=== PATIENT | male | born 1935 | race Caucasian/White ===

== ENCOUNTER 2020-10-16 11:17 | Outpatient (CLI) | payer MEDICARE, OTHER ==
[2020-10-16 12:48] LABS: Hemoglobin 13.5 g/dL (13.5-17.5); Mean Corpuscular HGB CONC 33.2 g/dL (32.0-36.0); Mean Corpuscular Hemoglobin 32.8 pg (27.0-33.0); Platelet Count 214 10x3/uL (150-450); RBC Distribution Width 12.6 % (11.5-14.5); Red Blood Cell (RBC) Count 4.11 10x6/uL (4.32-5.72)
[2020-10-16 13:06] LABS: Anion Gap 11 mmol/L (10-20); BUN (Urea Nitrogen) 27 mg/dL (8.4-25.7); Calc. Creatinine Clearance 0 mL/min (70-130); Calcium 9.1 mg/dL (7.8-10.44); Carbon Dioxide 31 mmol/L (23-31); Chloride 102 mmol/L (98-107); Glucose 127 mg/dL (83-110); PTT 26.5 sec (22.0-33.0); Potassium 4.4 mmol/L (3.5-5.1); Sodium 140 mmol/L (136-145)
[2020-10-17 02:35] LABS: SARS-CoV-2 PCR by NAA Not Detected (NotDetected)
== END 2020-10-16 11:18 | disposition home or self-care (01) ==
LOC: CSHLAB 11:17
PROVIDERS: ATTEND Internal Medicine Cardiovascular Disease
DX: Z01.812 Encounter for preprocedural laboratory examination (principal); Z20.822 Contact with and (suspected) exposure to COVID-19; I49.5 Sick sinus syndrome
CPT/HCPCS: 80048; 85027; 85610; 85730; 87635; U0003; U0005

== ENCOUNTER 2020-11-13 09:09 | Observation (INO) | payer MEDICARE, OTHER ==
[2020-11-13 10:03] LABS: ALT (SGPT) 14 U/L (8-55); AST (SGOT) 18 U/L (5-34); Albumin 3.8 g/dL (3.4-4.8); Alkaline Phosphatase 94 U/L (40-110); Anion Gap 13 mmol/L (10-20); BUN (Urea Nitrogen) 22 mg/dL (8.4-25.7); Bilirubin, Total 0.8 mg/dL (0.2-1.2); Calc. Creatinine Clearance 0 mL/min (70-130); Carbon Dioxide 28 mmol/L (23-31); Chloride 101 mmol/L (98-107); Globulin 2.6 g/dL (2.4-3.5); Glucose 144 mg/dL (83-110); Potassium 4.2 mmol/L (3.5-5.1); Protein, Total 6.4 g/dL (5.8-8.1); Sodium 138 mmol/L (136-145)
[2020-11-13 10:48] LABS: #Basophils 0.1 10x3/uL (0.0-0.2); #Eosinphils 0.4 10x3/uL (0.0-0.5); #Monocytes 0.6 10x3/uL (0.0-1.1); #Neutrophils 6.2 10x3/uL (1.5-8.4); %Basophils 0.9 % (0.0-2.0); %Eosinophils 4.5 % (0.0-6.0); %Lymphocytes 10.4 % (18.0-47.0); %Monocytes 7.2 % (0.0-10.0); %Neutrophils 76.3 % (40.0-75.0); Hemoglobin 13.9 g/dL (13.5-17.5); Mean Corpuscular HGB CONC 34.1 g/dL (32.0-36.0); Mean Corpuscular Hemoglobin 32.8 pg (27.0-33.0); Mean Corpuscular Volume 96.2 fl (81.2-95.1); Mean Platelet Volume 10.4 fl (7.4-10.4); Platelet Count 196 10x3/uL (150-450); RBC Distribution Width 12.6 % (11.5-14.5); Red Blood Cell (RBC) Count 4.24 10x6/uL (4.32-5.72); White Blood Cell (WBC) Count 8.1 10x3/uL (3.5-10.5)
[2020-11-13] MEDS ORDERED: hydrALAZINE 20 MG/ML VIAL SLOW IVP PRN ×2 (11:38→15:02)
[2020-11-13] MEDS ORDERED: Aspirin 81 mg Enteric Coated Tablet PO SCH (12:15)
[2020-11-13 13:05] VITALS: BMI 25.2
[2020-11-13] MEDS ORDERED: Lisinopril 20 MG TAB PO SCH (14:45)
[2020-11-13] MEDS ORDERED: Acetaminophen 325 MG TAB PO PRN (15:41)
[2020-11-13] MEDS: Carvedilol 25 MG TAB PO SCH (16:08)
[2020-11-13] MEDS: Apixaban 5 MG TAB PO SCH (19:53)
[2020-11-13] MEDS: Flecainide 50 MG TAB PO SCH (19:53)
[2020-11-13] MEDS ORDERED: Atorvastatin Calcium 40 MG TAB PO SCH (21:00)
[2020-11-13] MEDS ORDERED: Apixaban 5 MG TAB PO SCH (21:00)
[2020-11-14 05:26] LABS: Cardiac Risk 2.5 (Less than 4.5)
[2020-11-14] MEDS: Flecainide 50 MG TAB PO SCH (08:54)
[2020-11-14 08:55] VITALS: BP 144/88
[2020-11-14] MEDS: Carvedilol 25 MG TAB PO SCH (08:55)
[2020-11-14] MEDS: Apixaban 5 MG TAB PO SCH (08:55)
[2020-11-14] MEDS ORDERED: Aspirin 81 mg Enteric Coated Tablet PO SCH ×2 (09:00)
[2020-11-14] MEDS ORDERED: Enoxaparin Sodium 30 MG/0.3 ML SYRINGE SC SCH (09:00)
[2020-11-14] MEDS ORDERED: Lisinopril 20 MG TAB PO SCH (09:00)
[2020-11-14 09:31] VITALS: TEMP 98.6
== END 2020-11-14 13:19 | disposition home or self-care (01) ==
LOC: CSHERS 09:09 → INTOOBSV 11:56 → CSHTELE 11:56
PROVIDERS: ADMIT Family Medicine; ATTEND Family Medicine
DX: G45.9 Transient cerebral ischemic attack, unspecified (principal); I10 Essential (primary) hypertension; H40.9 Unspecified glaucoma; Z85.46 Personal history of malignant neoplasm of prostate; E78.5 Hyperlipidemia, unspecified; I48.0 Paroxysmal atrial fibrillation; Z95.0 Presence of cardiac pacemaker; Z79.899 Other long term (current) drug therapy; Z79.82 Long term (current) use of aspirin; Z88.2 Allergy status to sulfonamides; Z88.8 Allergy status to other drugs, medicaments and biological substances; Z91.048 Other nonmedicinal substance allergy status
CPT/HCPCS: 36415; 36416; 70450; 70551; 71045; 80053; 80061; 83880; 84484; 85025; 93005; 93306; G0378

== ENCOUNTER 2021-05-25 16:18 | Inpatient (IN) | payer MEDICARE, OTHER ==
[2021-05-25] MEDS ORDERED: HYDROcodone/Acetaminophen 5/325 mg Tablet PO PRN (16:21)
[2021-05-25] MEDS ORDERED: Ondansetron ODT 4 MG TAB PO PRN (16:21)
[2021-05-25] MEDS ORDERED: HYDROcodone/Acetaminophen 7.5/325 mg Tablet PO PRN (16:21)
[2021-05-25] MEDS ORDERED: Acetaminophen 325 MG TAB PO PRN (16:21)
[2021-05-25] MEDS ORDERED: Zolpidem Tartrate 5 MG TAB PO PRN (16:21)
[2021-05-25] MEDS ORDERED: Calcium Carbonate 500 MG ChewTAB PO PRN (16:21)
[2021-05-25] MEDS ORDERED: Senokot S 8.6-50 MG TAB PO PRN (16:21)
[2021-05-25] MEDS ORDERED: Loperamide HCl 2 MG CAP PO PRN (16:21)
[2021-05-25 16:57] LABS: #Basophils 0.1 10x3/uL (0.0-0.2); #Eosinphils 0.2 10x3/uL (0.0-0.5); #Monocytes 0.7 10x3/uL (0.0-1.1); #Neutrophils 5.5 10x3/uL (1.5-8.4); %Basophils 0.8 % (0.0-2.0); %Eosinophils 2.7 % (0.0-6.0); %Lymphocytes 16.5 % (18.0-47.0); %Monocytes 8.9 % (0.0-10.0); %Neutrophils 70.2 % (40.0-75.0); Hemoglobin 12.6 g/dL (13.5-17.5); Mean Corpuscular HGB CONC 34.5 g/dL (32.0-36.0); Mean Corpuscular Hemoglobin 33.8 pg (27.0-33.0); Mean Corpuscular Volume 97.9 fl (81.2-95.1); Platelet Count 214 10x3/uL (150-450); Red Blood Cell (RBC) Count 3.73 10x6/uL (4.32-5.72); White Blood Cell (WBC) Count 7.8 10x3/uL (3.5-10.5)
[2021-05-25 17:03] LABS: ALT (SGPT) 18 U/L (8-55); AST (SGOT) 19 U/L (5-34); Albumin 3.8 g/dL (3.4-4.8); Alkaline Phosphatase 101 U/L (40-110); Anion Gap 12 mmol/L (10-20); BUN (Urea Nitrogen) 19 mg/dL (8.4-25.7); Bilirubin, Total 0.6 mg/dL (0.2-1.2); Calc. Creatinine Clearance 0 mL/min (70-130); Calcium 9.4 mg/dL (7.8-10.44); Carbon Dioxide 28 mmol/L (23-31); Chloride 101 mmol/L (98-107); Globulin 3.1 g/dL (2.4-3.5); Glucose 149 mg/dL (83-110); Protein, Total 6.9 g/dL (5.8-8.1); Sodium 137 mmol/L (136-145)
[2021-05-25] MEDS ORDERED: FLU VACC QS2021-22(65YR UP)/PF 240 MCG/0.7 ML SYRINGE IM ONE (17:45)
[2021-05-25] MEDS ORDERED: Carvedilol 25 MG TAB PO SCH (19:00)
[2021-05-25 19:55] VITALS: BMI 24.7
[2021-05-25] MEDS: Gabapentin 300 MG CAP PO SCH ×2 (20:30→21:12)
[2021-05-25] MEDS: Flecainide 50 MG TAB PO SCH (20:30)
[2021-05-25] MEDS ORDERED: FLUOROMETHOLONE R EYE SCH (21:00)
[2021-05-25] MEDS: Brimonidine Tartrate 0.2% Ophth Soln 5 ml Bottle EA EYE SCH ×2 (21:12→21:15)
[2021-05-25] MEDS: Latanoprost 0.005% Ophth Soln 2.5 ml Bottle L EYE SCH ×2 (21:13→21:15)
[2021-05-25] MEDS: Timolol 0.5% Ophth Soln 5 ml Bottle EA EYE SCH ×2 (21:14→21:15)
[2021-05-25] MEDS: CEFAZOLIN 0.5 GM in Sodium Chloride 0.9% 100 ML IVPB SCH (21:27)
[2021-05-26] MEDS: CEFAZOLIN 0.5 GM in Sodium Chloride 0.9% 100 ML IVPB SCH ×3 (05:29→21:46)
[2021-05-26 05:58] LABS: #Basophils 0.1 10x3/uL (0.0-0.2); #Eosinphils 0.2 10x3/uL (0.0-0.5); #Monocytes 0.5 10x3/uL (0.0-1.1); %Basophils 0.7 % (0.0-2.0); %Eosinophils 2.9 % (0.0-6.0); %Lymphocytes 15.8 % (18.0-47.0); %Monocytes 7.3 % (0.0-10.0); %Neutrophils 72.7 % (40.0-75.0); Hemoglobin 11.3 g/dL (13.5-17.5); Mean Corpuscular HGB CONC 34.5 g/dL (32.0-36.0); Mean Corpuscular Hemoglobin 33.3 pg (27.0-33.0); Mean Corpuscular Volume 96.8 fl (81.2-95.1); Mean Platelet Volume 10.6 fl (7.4-10.4); Platelet Count 204 10x3/uL (150-450); RBC Distribution Width 13.1 % (11.5-14.5); Red Blood Cell (RBC) Count 3.39 10x6/uL (4.32-5.72); White Blood Cell (WBC) Count 6.9 10x3/uL (3.5-10.5)
[2021-05-26 06:11] LABS: Anion Gap 15 mmol/L (10-20); BUN (Urea Nitrogen) 16 mg/dL (8.4-25.7); Calc. Creatinine Clearance 52 mL/min (70-130); Calcium 8.9 mg/dL (7.8-10.44); Carbon Dioxide 21 mmol/L (23-31); Chloride 105 mmol/L (98-107); Glucose 131 mg/dL (83-110); Potassium 4.2 mmol/L (3.5-5.1); Sodium 137 mmol/L (136-145)
[2021-05-26 07:28] LABS: SARS-CoV-2 NAA Rapid Test Not Detected (NotDetected)
[2021-05-26] MEDS ORDERED: Carvedilol 25 MG TAB PO SCH ×2 (08:00→14:00)
[2021-05-26] MEDS ORDERED: CEFAZOLIN 1 GM VIAL ONE ×2 (08:04→08:05)
[2021-05-26] MEDS ORDERED: Gentamicin 80 MG/2 ML VIAL ONE (08:05)
[2021-05-26] MEDS ORDERED: Sodium Chloride 0.9% 1,000 ML ONE (08:06)
[2021-05-26] MEDS ORDERED: Lidocaine 1% PF 5 ML VIAL ONE (08:12)
[2021-05-26] MEDS ORDERED: Midazolam HCl 2 mg/2 ml Vial ONE (08:12)
[2021-05-26] MEDS ORDERED: Fentanyl 100 MCG/2 ML VIAL ONE (08:12)
[2021-05-26] MEDS ORDERED: Lisinopril 20 MG TAB PO SCH (09:00)
[2021-05-26] MEDS ORDERED: HYDROcodone/Acetaminophen 10/325 mg Tablet PO PRN (10:14)
[2021-05-26] MEDS ORDERED: HYDROcodone/Acetaminophen 5/325 mg Tablet PO PRN (10:15)
[2021-05-26] MEDS ORDERED: HYDROcodone/Acetaminophen 7.5/325 mg Tablet PO PRN (10:15)
[2021-05-26] MEDS: Furosemide 20 MG TAB PO SCH (11:02)
[2021-05-26] MEDS: Potassium Chloride 20 MEQ TAB PO SCH (11:02)
[2021-05-26] MEDS: Flecainide 50 MG TAB PO SCH ×2 (11:03→20:30)
[2021-05-26] MEDS: Atorvastatin Calcium 20 MG TAB PO SCH (11:03)
[2021-05-26] MEDS: Brimonidine Tartrate 0.2% Ophth Soln 5 ml Bottle EA EYE SCH ×2 (11:05→20:32)
[2021-05-26] MEDS: Timolol 0.5% Ophth Soln 5 ml Bottle EA EYE SCH ×2 (11:10→20:30)
[2021-05-26] MEDS ORDERED: Sodium Chloride 0.9% 500 ML IV SCH (13:45)
[2021-05-26] MEDS ORDERED: Sodium Chloride 0.9% 250 ML IV SCH (13:50)
[2021-05-26] MEDS: Carvedilol 6.25 MG TAB PO SCH (18:45)
[2021-05-26] MEDS: Latanoprost 0.005% Ophth Soln 2.5 ml Bottle L EYE SCH (20:30)
[2021-05-26] MEDS: Gabapentin 300 MG CAP PO SCH (20:38)
[2021-05-27] MEDS: CEFAZOLIN 0.5 GM in Sodium Chloride 0.9% 100 ML IVPB SCH ×3 (06:12→22:20)
[2021-05-27] MEDS: Brimonidine Tartrate 0.2% Ophth Soln 5 ml Bottle EA EYE SCH ×2 (08:13→22:20)
[2021-05-27] MEDS: Carvedilol 6.25 MG TAB PO SCH ×2 (08:16→18:06)
[2021-05-27] MEDS: Furosemide 20 MG TAB PO SCH (08:16)
[2021-05-27] MEDS: Flecainide 50 MG TAB PO SCH ×2 (08:17→22:10)
[2021-05-27] MEDS: Potassium Chloride 20 MEQ TAB PO SCH (08:17)
[2021-05-27] MEDS: Lisinopril 20 MG TAB PO SCH (08:17)
[2021-05-27] MEDS: Atorvastatin Calcium 20 MG TAB PO SCH (08:17)
[2021-05-27] MEDS: Timolol 0.5% Ophth Soln 5 ml Bottle EA EYE SCH ×2 (08:18→22:17)
[2021-05-27 09:45] LABS: #Basophils 0.1 10x3/uL (0.0-0.2); #Eosinphils 0.1 10x3/uL (0.0-0.5); #Monocytes 0.5 10x3/uL (0.0-1.1); #Neutrophils 4.7 10x3/uL (1.5-8.4); %Eosinophils 2.1 % (0.0-6.0); %Lymphocytes 13.3 % (18.0-47.0); %Monocytes 7.9 % (0.0-10.0); %Neutrophils 75.1 % (40.0-75.0); Hemoglobin 12.5 g/dL (13.5-17.5); Mean Corpuscular HGB CONC 34.2 g/dL (32.0-36.0); Mean Corpuscular Hemoglobin 32.9 pg (27.0-33.0); Mean Corpuscular Volume 96.3 fl (81.2-95.1); Mean Platelet Volume 9.7 fl (7.4-10.4); Platelet Count 204 10x3/uL (150-450); RBC Distribution Width 13.1 % (11.5-14.5); White Blood Cell (WBC) Count 6.3 10x3/uL (3.5-10.5)
[2021-05-27] MEDS: Gabapentin 300 MG CAP PO SCH (22:11)
[2021-05-27] MEDS: Latanoprost 0.005% Ophth Soln 2.5 ml Bottle L EYE SCH (22:18)
[2021-05-28 05:00] LABS: #Basophils 0.1 10x3/uL (0.0-0.2); #Eosinphils 0.2 10x3/uL (0.0-0.5); #Monocytes 0.4 10x3/uL (0.0-1.1); #Neutrophils 3.9 10x3/uL (1.5-8.4); %Eosinophils 3.4 % (0.0-6.0); %Lymphocytes 20.6 % (18.0-47.0); %Monocytes 7.4 % (0.0-10.0); %Neutrophils 66.4 % (40.0-75.0); Hemoglobin 11.6 g/dL (13.5-17.5); Mean Corpuscular HGB CONC 34.1 g/dL (32.0-36.0); Mean Corpuscular Hemoglobin 32.8 pg (27.0-33.0); Mean Platelet Volume 9.9 fl (7.4-10.4); Platelet Count 190 10x3/uL (150-450); RBC Distribution Width 12.7 % (11.5-14.5); Red Blood Cell (RBC) Count 3.54 10x6/uL (4.32-5.72); White Blood Cell (WBC) Count 5.9 10x3/uL (3.5-10.5)
[2021-05-28] MEDS: CEFAZOLIN 0.5 GM in Sodium Chloride 0.9% 100 ML IVPB SCH ×3 (05:42→22:54)
[2021-05-28] MEDS: Brimonidine Tartrate 0.2% Ophth Soln 5 ml Bottle EA EYE SCH ×2 (09:08→21:25)
[2021-05-28] MEDS: Atorvastatin Calcium 20 MG TAB PO SCH (09:11)
[2021-05-28] MEDS: Furosemide 20 MG TAB PO SCH (09:11)
[2021-05-28] MEDS: Flecainide 50 MG TAB PO SCH ×2 (09:12→20:43)
[2021-05-28] MEDS: Carvedilol 6.25 MG TAB PO SCH ×2 (09:12→18:32)
[2021-05-28] MEDS: Potassium Chloride 20 MEQ TAB PO SCH (09:12)
[2021-05-28] MEDS: Timolol 0.5% Ophth Soln 5 ml Bottle EA EYE SCH ×2 (09:13→21:24)
[2021-05-28] MEDS: Lisinopril 20 MG TAB PO SCH (09:13)
[2021-05-28] MEDS: Gabapentin 300 MG CAP PO SCH (20:44)
[2021-05-28] MEDS: Latanoprost 0.005% Ophth Soln 2.5 ml Bottle L EYE SCH (21:25)
[2021-05-29] MEDS: CEFAZOLIN 0.5 GM in Sodium Chloride 0.9% 100 ML IVPB SCH ×3 (05:19→22:35)
[2021-05-29] MEDS: Potassium Chloride 20 MEQ TAB PO SCH (08:09)
[2021-05-29] MEDS: Atorvastatin Calcium 20 MG TAB PO SCH (08:09)
[2021-05-29] MEDS: Furosemide 20 MG TAB PO SCH (08:09)
[2021-05-29] MEDS: Lisinopril 20 MG TAB PO SCH (08:09)
[2021-05-29] MEDS: Carvedilol 6.25 MG TAB PO SCH ×2 (08:10→17:18)
[2021-05-29] MEDS: Flecainide 50 MG TAB PO SCH ×2 (08:10→22:31)
[2021-05-29] MEDS: Timolol 0.5% Ophth Soln 5 ml Bottle EA EYE SCH ×2 (11:41→22:38)
[2021-05-29] MEDS: Brimonidine Tartrate 0.2% Ophth Soln 5 ml Bottle EA EYE SCH ×2 (11:41→22:37)
[2021-05-29] MEDS: Gabapentin 300 MG CAP PO SCH (22:32)
[2021-05-29] MEDS: Latanoprost 0.005% Ophth Soln 2.5 ml Bottle L EYE SCH (22:38)
[2021-05-30] MEDS ORDERED: CEFAZOLIN 0.5 GM, Admixture Fee 1 EACH in Sodium Chloride 0.9% 100 ML IVPB SCH (06:00)
[2021-05-30] MEDS: CEFAZOLIN 0.5 GM in Sodium Chloride 0.9% 100 ML IVPB SCH (06:00)
[2021-05-30 08:12] VITALS: BP 140/71; TEMP 98.6
[2021-05-30] MEDS ORDERED: Apixaban 5 MG TAB PO SCH (09:00)
[2021-05-30] MEDS: Lisinopril 20 MG TAB PO SCH (09:01)
[2021-05-30] MEDS: Furosemide 20 MG TAB PO SCH (09:01)
[2021-05-30] MEDS: Potassium Chloride 20 MEQ TAB PO SCH (09:01)
[2021-05-30] MEDS: Flecainide 50 MG TAB PO SCH (09:01)
[2021-05-30] MEDS: Atorvastatin Calcium 20 MG TAB PO SCH (09:01)
[2021-05-30] MEDS: Timolol 0.5% Ophth Soln 5 ml Bottle EA EYE SCH (09:02)
[2021-05-30] MEDS: Brimonidine Tartrate 0.2% Ophth Soln 5 ml Bottle EA EYE SCH (09:02)
[2021-05-30] MEDS: Carvedilol 6.25 MG TAB PO SCH (09:03)
[2021-05-30] MEDS ORDERED: Amoxicillin/Potassium Clav 875 MG TAB PO SCH (21:00)
== END 2021-05-30 14:10 | disposition home or self-care (01) | DRG 315 ==
LOC: CSHTELE 16:18
PROVIDERS: ADMIT Specialist; ATTEND Specialist
PROC: 0W980ZZ Drainage of Chest Wall, Open Approach (ICD-10-PCS; principal; 2021-05-26)
PROC: 0JPT02Z Removal of Monitoring Device from Trunk Subcutaneous Tissue and Fascia, Open Approach (ICD-10-PCS; 2021-05-26)
DX: T82.7XXA Infection and inflammatory reaction due to other cardiac and vascular devices, implants and grafts, initial encounter (principal); L02.213 Cutaneous abscess of chest wall; B96.4 Proteus (mirabilis) (morganii) as the cause of diseases classified elsewhere; Z88.2 Allergy status to sulfonamides; Z88.8 Allergy status to other drugs, medicaments and biological substances; I48.0 Paroxysmal atrial fibrillation; E78.5 Hyperlipidemia, unspecified; Z20.822 Contact with and (suspected) exposure to COVID-19; K21.9 Gastro-esophageal reflux disease without esophagitis; Z85.46 Personal history of malignant neoplasm of prostate; M19.90 Unspecified osteoarthritis, unspecified site; E66.9 Obesity, unspecified; Z68.24 Body mass index [BMI] 24.0-24.9, adult; I12.9 Hypertensive chronic kidney disease with stage 1 through stage 4 chronic kidney disease, or unspecified chronic kidney disease; N18.30 Chronic kidney disease, stage 3 unspecified; Y84.8 Other medical procedures as the cause of abnormal reaction of the patient, or of later complication, without mention of misadventure at the time of the procedure; Z79.01 Long term (current) use of anticoagulants; Z79.899 Other long term (current) drug therapy
CPT/HCPCS: 33286; 36415; 36416; 80048; 80053; 85025; 87040; 87070; 87077; 87081; 87102; 87186; 87205; 99152; 99153; J0690; J1580; J2250; J3010; J3490; J7030; J7050; U0002

== ENCOUNTER 2021-06-03 11:11 | Outpatient (CLI) | payer MEDICARE, OTHER | END 2021-06-03 11:12 | disposition home or self-care (01) | LOC: CSHWCC 11:11 | PROVIDERS: ATTEND Nurse Practitioner Family | DX: S21.102D Unspecified open wound of left front wall of thorax without penetration into thoracic cavity, subsequent encounter (principal); L03.313 Cellulitis of chest wall; I48.0 Paroxysmal atrial fibrillation; E78.2 Mixed hyperlipidemia; I10 Essential (primary) hypertension; B96.89 Other specified bacterial agents as the cause of diseases classified elsewhere; N28.9 Disorder of kidney and ureter, unspecified; Z85.46 Personal history of malignant neoplasm of prostate; Z91.81 History of falling | CPT/HCPCS: 97139; G0463; 99203 ==

== ENCOUNTER 2021-06-16 08:33 | Outpatient (CLI) | payer MEDICARE, OTHER | END 2021-06-16 08:34 | disposition home or self-care (01) | LOC: CSHWCC 08:33 | PROVIDERS: ATTEND Nurse Practitioner Family | DX: S21.102D Unspecified open wound of left front wall of thorax without penetration into thoracic cavity, subsequent encounter (principal); L03.313 Cellulitis of chest wall; E78.2 Mixed hyperlipidemia; I10 Essential (primary) hypertension; I48.0 Paroxysmal atrial fibrillation; N28.9 Disorder of kidney and ureter, unspecified; B96.89 Other specified bacterial agents as the cause of diseases classified elsewhere; Z85.46 Personal history of malignant neoplasm of prostate; Z91.81 History of falling | CPT/HCPCS: 97139; G0463; 99213 ==

== ENCOUNTER 2022-08-01 21:12 | Inpatient (IN) | payer MEDICARE, BC ==
[2022-08-01 21:40] LABS: #Monocytes 0.8 10x3/uL (0.0-1.1); #Neutrophils 7.6 10x3/uL (1.5-8.4); %Basophils 0.2 % (0.0-2.0); %Eosinophils 0.4 % (0.0-6.0); %Monocytes 8.6 % (0.0-10.0); Mean Corpuscular HGB CONC 33.6 g/dL (32.0-36.0); Mean Corpuscular Hemoglobin 31.9 pg (27.0-33.0); Mean Corpuscular Volume 94.8 fl (81.2-95.1); Mean Platelet Volume 9.6 fl (7.4-10.4); Platelet Count 206 10x3/uL (150-450); RBC Distribution Width 13.6 % (11.5-14.5); Red Blood Cell (RBC) Count 3.45 10x6/uL (4.32-5.72); White Blood Cell (WBC) Count 9.3 10x3/uL (3.5-10.5)
[2022-08-01 21:49] LABS: D-Dimer Test 1.97 mg/L FEU (0.19-0.50); INR-International Normal Ratio 1.1; PTT 31.4 sec (22.0-33.0); Prothrombin Time 11.8 sec (9.5-12.1)
[2022-08-01 21:51] LABS: AST (SGOT) 32 U/L (5-34); Albumin 3.3 g/dL (3.4-4.8); Anion Gap 13 mmol/L (10-20); Bilirubin, Total 0.9 mg/dL (0.2-1.2); Calc. Creatinine Clearance 0 mL/min (70-130); Calcium 8.4 mg/dL (7.8-10.44); Carbon Dioxide 26 mmol/L (23-31); Chloride 95 mmol/L (98-107); Estimated GFR 34; Globulin 2.6 g/dL (2.4-3.5); Potassium 5.2 mmol/L (3.5-5.1); Protein, Total 5.9 g/dL (5.8-8.1); Sodium 129 mmol/L (136-145)
[2022-08-01 22:01] LABS: ALT (SGPT) 23 U/L (8-55); Alkaline Phosphatase 237 U/L (40-110); BUN (Urea Nitrogen) 24 mg/dL (8.4-25.7); Glucose 182 mg/dL (83-110); Magnesium 2.2 mg/dL (1.6-2.6)
[2022-08-01 22:31] LABS: CK (CPK) 84 U/L (30-200)
[2022-08-01 22:33] LABS: SARS-CoV-2 NAA Rapid Test DETECTED (NotDetected)
[2022-08-01] MEDS ORDERED: Nitroglycerin 0.4 MG TAB (25 Tab Bottle) SL PRN (22:37)
[2022-08-01] MEDS ORDERED: Acetaminophen 325 MG TAB PO PRN (22:37)
[2022-08-01] MEDS ORDERED: GUAIFENESIN SF SOLN 200 MG/10 ML UDCUP PO PRN (22:57)
[2022-08-01 23:14] LABS: Troponin I 0.012 ng/mL (< 0.028)
[2022-08-02 02:05] LABS: #Monocytes 0.7 10x3/uL (0.0-1.1); #Neutrophils 6.5 10x3/uL (1.5-8.4); %Basophils 0.4 % (0.0-2.0); %Eosinophils 0.5 % (0.0-6.0); %Neutrophils 78.4 % (40.0-75.0); Hemoglobin 10.3 g/dL (13.5-17.5); Mean Corpuscular HGB CONC 34.6 g/dL (32.0-36.0); Mean Corpuscular Hemoglobin 32.4 pg (27.0-33.0); Mean Corpuscular Volume 93.7 fl (81.2-95.1); Mean Platelet Volume 9.6 fl (7.4-10.4); Platelet Count 174 10x3/uL (150-450); RBC Distribution Width 13.7 % (11.5-14.5); Red Blood Cell (RBC) Count 3.18 10x6/uL (4.32-5.72); White Blood Cell (WBC) Count 8.3 10x3/uL (3.5-10.5)
[2022-08-02 02:24] LABS: Troponin I 0.015 ng/mL (< 0.028)
[2022-08-02 02:37] LABS: Bilirubin Neg (Negative); Blood, Urine 10 (Negative); Clarity Clear (Clear); Glucose, Urine (Dipstick) Normal (Negative); Ketone, Urine Negative (Negative); Leukocyte 25 (Negative); Nitrite Negative (Negative); Protein, Urine (Dipstick) 30 mg/dl (Neg-Trace); pH, Urine 6.5 (5.0-9.0)
[2022-08-02 02:45] LABS: Bacteria/HPF Rare-Few HPF (None Seen); RBC/HPF 0-3 HPF (0-3); Squamous Epithelial None Seen HPF (0-3)
[2022-08-02 02:57] LABS: ALT (SGPT) 20 U/L (8-55); AST (SGOT) 25 U/L (5-34); Alkaline Phosphatase 211 U/L (40-110); Anion Gap 11 mmol/L (10-20); BUN (Urea Nitrogen) 24 mg/dL (8.4-25.7); Bilirubin, Total 0.8 mg/dL (0.2-1.2); Calc. Creatinine Clearance 0 mL/min (70-130); Calcium 8.5 mg/dL (7.8-10.44); Carbon Dioxide 25 mmol/L (23-31); Chloride 98 mmol/L (98-107); Estimated GFR 40; Globulin 2.8 g/dL (2.4-3.5); Glucose 149 mg/dL (83-110); Potassium 4.6 mmol/L (3.5-5.1); Protein, Total 5.8 g/dL (5.8-8.1); Sodium 129 mmol/L (136-145)
[2022-08-02] MEDS ORDERED: Folic Acid 1 MG TAB ONE (07:50)
[2022-08-02] MEDS ORDERED: Aspirin Chewable 81 MG TAB ONE (07:50)
[2022-08-02] MEDS ORDERED: Apixaban 5 MG TAB ONE (07:50)
[2022-08-02] MEDS ORDERED: Ondansetron PF 4 MG/2 ML Vial ONE (07:51)
[2022-08-02] MEDS ORDERED: Carvedilol 25 MG TAB ONE (07:52)
[2022-08-02] MEDS ORDERED: Zinc Sulfate 220 MG CAP ONE (07:52)
[2022-08-02] MEDS: Carvedilol 25 MG TAB PO SCH ×2 (08:03→18:07)
[2022-08-02] MEDS: Ferrous Sulfate 325 MG TAB PO SCH (08:04)
[2022-08-02] MEDS: Apixaban 5 MG TAB PO SCH ×2 (08:05→21:32)
[2022-08-02] MEDS: Folic Acid 1 MG TAB PO SCH (08:05)
[2022-08-02] MEDS: Flecainide 50 MG TAB PO SCH ×2 (08:05→21:32)
[2022-08-02] MEDS: Ubidecarenone 50 MG CAP PO SCH (08:05)
[2022-08-02] MEDS: Zinc Sulfate 220 MG CAP PO SCH (08:05)
[2022-08-02] MEDS: Aspirin Chewable 81 MG TAB PO SCH (08:05)
[2022-08-02 08:45] VITALS: BMI 23.0
[2022-08-02] MEDS ORDERED: FLU VACC QS2022-23(65YR UP)/PF 240 MCG/0.7 ML SYRINGE IM ONE (09:00)
[2022-08-02] MEDS ORDERED: Zinc Gluconate 50 MG TAB PO SCH (09:00)
[2022-08-02 09:31] LABS: Sodium 130 mmol/L (136-145)
[2022-08-02] MEDS ORDERED: Scopolamine 1.5 mg/72 hour Patch TD PRN (12:44)
[2022-08-02 14:39] LABS: Sodium 130 mmol/L (136-145)
[2022-08-02 20:40] LABS: Sodium 128 mmol/L (136-145)
[2022-08-02] MEDS: Latanoprost 0.005% Ophth Soln 2.5 ml Bottle L EYE SCH (21:32)
[2022-08-02] MEDS: Sodium Chloride 0.9% 1,000 ML IV SCH ×2 (22:14)
[2022-08-03] MEDS ORDERED: Lorazepam 2 MG/ML VIAL SLOW IVP SCH (00:45)
[2022-08-03] MEDS: Ferrous Sulfate 325 MG TAB PO SCH (08:20)
[2022-08-03] MEDS: Apixaban 5 MG TAB PO SCH ×2 (08:20→21:30)
[2022-08-03] MEDS: Flecainide 50 MG TAB PO SCH ×2 (08:20→21:30)
[2022-08-03] MEDS: Folic Acid 1 MG TAB PO SCH (08:20)
[2022-08-03] MEDS: Carvedilol 25 MG TAB PO SCH ×2 (08:20→21:30)
[2022-08-03] MEDS: Aspirin Chewable 81 MG TAB PO SCH (08:20)
[2022-08-03] MEDS: Zinc Sulfate 220 MG CAP PO SCH (08:21)
[2022-08-03] MEDS: Ubidecarenone 50 MG CAP PO SCH (08:21)
[2022-08-03 08:36] LABS: #Eosinphils 0.1 10x3/uL (0.0-0.5); #Monocytes 0.4 10x3/uL (0.0-1.1); #Neutrophils 6.1 10x3/uL (1.5-8.4); %Basophils 0.3 % (0.0-2.0); %Eosinophils 0.7 % (0.0-6.0); %Lymphocytes 10.6 % (18.0-47.0); %Neutrophils 81.9 % (40.0-75.0); Hemoglobin 11.3 g/dL (13.5-17.5); Mean Corpuscular HGB CONC 33.9 g/dL (32.0-36.0); Mean Corpuscular Hemoglobin 32.1 pg (27.0-33.0); Mean Corpuscular Volume 94.6 fl (81.2-95.1); Mean Platelet Volume 10.1 fl (7.4-10.4); Platelet Count 231 10x3/uL (150-450); RBC Distribution Width 13.6 % (11.5-14.5); Red Blood Cell (RBC) Count 3.52 10x6/uL (4.32-5.72); White Blood Cell (WBC) Count 7.4 10x3/uL (3.5-10.5)
[2022-08-03 08:48] LABS: ALT (SGPT) 17 U/L (8-55); AST (SGOT) 21 U/L (5-34); Albumin 3.1 g/dL (3.4-4.8); Alkaline Phosphatase 217 U/L (40-110); Anion Gap 15 mmol/L (10-20); BUN (Urea Nitrogen) 25 mg/dL (8.4-25.7); Bilirubin, Total 0.9 mg/dL (0.2-1.2); Calc. Creatinine Clearance 38 mL/min (70-130); Calcium 8.8 mg/dL (7.8-10.44); Carbon Dioxide 23 mmol/L (23-31); Chloride 99 mmol/L (98-107); Estimated GFR 45; Globulin 3.2 g/dL (2.4-3.5); Glucose 137 mg/dL (83-110); Potassium 4.7 mmol/L (3.5-5.1); Protein, Total 6.3 g/dL (5.8-8.1); Sodium 132 mmol/L (136-145)
[2022-08-03] MEDS: cefTRIAXone\\ROCEPHIN 1 GM in Sodium Chloride 0.9% 100 ML IVPB SCH (09:03)
[2022-08-03 15:04] LABS: Sodium 131 mmol/L (136-145)
[2022-08-03] MEDS ORDERED: OMEPRAZOLE MAGNESIUM 20 MG PO SCH (15:30)
[2022-08-03] MEDS ORDERED: REMDESIVIR 200 MG in Sodium Chloride 0.9% 250 ML 210 ML IV SCH (20:00)
[2022-08-03] MEDS ORDERED: REMDESIVIR 100 MG in Sodium Chloride 0.9% 250 ML 230 ML IV SCH (20:00)
[2022-08-03] MEDS ORDERED: FLUOROMETHOLONE R EYE SCH (21:00)
[2022-08-03] MEDS: Latanoprost 0.005% Ophth Soln 2.5 ml Bottle L EYE SCH (21:30)
[2022-08-03] MEDS: Brimonidine Tartrate 0.2% Ophth Soln 5 ml Bottle L EYE SCH (21:35)
[2022-08-03] MEDS: Timolol 0.5% Ophth Soln 5 ml Bottle L EYE SCH (21:58)
[2022-08-04 06:36] LABS: Magnesium 1.9 mg/dL (1.6-2.6); Phosphorus 2.4 mg/dL (2.3-4.7)
[2022-08-04 08:43] LABS: #Eosinphils 0.1 10x3/uL (0.0-0.5); #Monocytes 0.4 10x3/uL (0.0-1.1); #Neutrophils 4.4 10x3/uL (1.5-8.4); %Basophils 0.3 % (0.0-2.0); %Eosinophils 2.4 % (0.0-6.0); %Lymphocytes 13.2 % (18.0-47.0); %Monocytes 7.5 % (0.0-10.0); %Neutrophils 75.9 % (40.0-75.0); Hemoglobin 10.5 g/dL (13.5-17.5); Mean Corpuscular HGB CONC 34.1 g/dL (32.0-36.0); Mean Corpuscular Hemoglobin 32.3 pg (27.0-33.0); Mean Corpuscular Volume 94.8 fl (81.2-95.1); Mean Platelet Volume 9.6 fl (7.4-10.4); Platelet Count 210 10x3/uL (150-450); RBC Distribution Width 13.7 % (11.5-14.5); Red Blood Cell (RBC) Count 3.25 10x6/uL (4.32-5.72); White Blood Cell (WBC) Count 5.8 10x3/uL (3.5-10.5)
[2022-08-04 08:59] LABS: ALT (SGPT) 15 U/L (8-55); AST (SGOT) 16 U/L (5-34); Albumin 2.7 g/dL (3.4-4.8); Alkaline Phosphatase 171 U/L (40-110); Anion Gap 11 mmol/L (10-20); BUN (Urea Nitrogen) 25 mg/dL (8.4-25.7); Bilirubin, Total 0.4 mg/dL (0.2-1.2); Calc. Creatinine Clearance 43 mL/min (70-130); Calcium 8.5 mg/dL (7.8-10.44); Carbon Dioxide 26 mmol/L (23-31); Chloride 101 mmol/L (98-107); Estimated GFR 52; Globulin 2.8 g/dL (2.4-3.5); Glucose 110 mg/dL (83-110); Potassium 4.3 mmol/L (3.5-5.1); Protein, Total 5.5 g/dL (5.8-8.1); Sodium 134 mmol/L (136-145)
[2022-08-04] MEDS: Ubidecarenone 50 MG CAP PO SCH (10:13)
[2022-08-04] MEDS: Apixaban 5 MG TAB PO SCH ×2 (10:13→20:31)
[2022-08-04] MEDS: Pantoprazole 40 MG VIAL IVP SCH (10:13)
[2022-08-04] MEDS: Zinc Sulfate 220 MG CAP PO SCH (10:14)
[2022-08-04] MEDS: Aspirin Chewable 81 MG TAB PO SCH (10:14)
[2022-08-04] MEDS: Flecainide 50 MG TAB PO SCH ×2 (10:14→20:31)
[2022-08-04] MEDS: Ferrous Sulfate 325 MG TAB PO SCH (10:14)
[2022-08-04] MEDS: Folic Acid 1 MG TAB PO SCH (10:14)
[2022-08-04] MEDS: Carvedilol 25 MG TAB PO SCH ×2 (10:14→17:29)
[2022-08-04] MEDS: Timolol 0.5% Ophth Soln 5 ml Bottle L EYE SCH ×2 (10:15→20:56)
[2022-08-04] MEDS: Brimonidine Tartrate 0.2% Ophth Soln 5 ml Bottle L EYE SCH ×2 (10:20→20:31)
[2022-08-04] MEDS: Floranex 1 GM Packet PO SCH (10:20)
[2022-08-04] MEDS: cefTRIAXone\\ROCEPHIN 1 GM in Sodium Chloride 0.9% 100 ML IVPB SCH (10:24)
[2022-08-04] MEDS ORDERED: REMDESIVIR 100 MG in Sodium Chloride 0.9% 250 ML 230 ML IV SCH (20:00)
[2022-08-04] MEDS: Latanoprost 0.005% Ophth Soln 2.5 ml Bottle L EYE SCH (20:30)
[2022-08-05 05:10] LABS: #Eosinphils 0.3 10x3/uL (0.0-0.5); #Monocytes 0.3 10x3/uL (0.0-1.1); %Basophils 0.6 % (0.0-2.0); %Eosinophils 4.9 % (0.0-6.0); %Monocytes 5.5 % (0.0-10.0); %Neutrophils 75.4 % (40.0-75.0); Hemoglobin 9.7 g/dL (13.5-17.5); Mean Corpuscular HGB CONC 33.9 g/dL (32.0-36.0); Mean Corpuscular Hemoglobin 31.4 pg (27.0-33.0); Mean Corpuscular Volume 92.6 fl (81.2-95.1); Mean Platelet Volume 9.7 fl (7.4-10.4); Platelet Count 215 10x3/uL (150-450); RBC Distribution Width 13.7 % (11.5-14.5); Red Blood Cell (RBC) Count 3.09 10x6/uL (4.32-5.72); White Blood Cell (WBC) Count 5.3 10x3/uL (3.5-10.5)
[2022-08-05 05:25] LABS: Anion Gap 11 mmol/L (10-20); BUN (Urea Nitrogen) 28 mg/dL (8.4-25.7); Calc. Creatinine Clearance 48 mL/min (70-130); Calcium 8.3 mg/dL (7.8-10.44); Carbon Dioxide 24 mmol/L (23-31); Chloride 103 mmol/L (98-107); Estimated GFR 60; Glucose 131 mg/dL (83-110); Potassium 4.1 mmol/L (3.5-5.1); Sodium 134 mmol/L (136-145)
[2022-08-05 08:39] LABS: #Eosinphils 0.3 10x3/uL (0.0-0.5); #Monocytes 0.4 10x3/uL (0.0-1.1); %Basophils 0.7 % (0.0-2.0); %Eosinophils 5.6 % (0.0-6.0); %Lymphocytes 12.7 % (18.0-47.0); %Monocytes 6.7 % (0.0-10.0); %Neutrophils 73.7 % (40.0-75.0); Hemoglobin 9.9 g/dL (13.5-17.5); Mean Corpuscular HGB CONC 34.4 g/dL (32.0-36.0); Mean Corpuscular Hemoglobin 32.1 pg (27.0-33.0); Mean Corpuscular Volume 93.5 fl (81.2-95.1); Mean Platelet Volume 9.4 fl (7.4-10.4); Platelet Count 219 10x3/uL (150-450); RBC Distribution Width 13.9 % (11.5-14.5); Red Blood Cell (RBC) Count 3.08 10x6/uL (4.32-5.72); White Blood Cell (WBC) Count 5.4 10x3/uL (3.5-10.5)
[2022-08-05 08:54] LABS: ALT (SGPT) 12 U/L (8-55); AST (SGOT) 12 U/L (5-34); Albumin 2.6 g/dL (3.4-4.8); Alkaline Phosphatase 157 U/L (40-110); Anion Gap 11 mmol/L (10-20); BUN (Urea Nitrogen) 28 mg/dL (8.4-25.7); Bilirubin, Total 0.4 mg/dL (0.2-1.2); Calc. Creatinine Clearance 48 mL/min (70-130); Calcium 8.4 mg/dL (7.8-10.44); Carbon Dioxide 25 mmol/L (23-31); Chloride 103 mmol/L (98-107); Estimated GFR 59; Globulin 2.5 g/dL (2.4-3.5); Glucose 102 mg/dL (83-110); Potassium 3.9 mmol/L (3.5-5.1); Protein, Total 5.1 g/dL (5.8-8.1); Sodium 135 mmol/L (136-145)
[2022-08-05] MEDS: Floranex 1 GM Packet PO SCH (09:49)
[2022-08-05] MEDS: Ubidecarenone 50 MG CAP PO SCH (10:00)
[2022-08-05] MEDS: Flecainide 50 MG TAB PO SCH (10:00)
[2022-08-05] MEDS: Carvedilol 25 MG TAB PO SCH ×2 (10:00→17:05)
[2022-08-05] MEDS: Apixaban 5 MG TAB PO SCH (10:00)
[2022-08-05] MEDS: Folic Acid 1 MG TAB PO SCH (10:00)
[2022-08-05] MEDS: Zinc Sulfate 220 MG CAP PO SCH (10:00)
[2022-08-05] MEDS: Ferrous Sulfate 325 MG TAB PO SCH (10:00)
[2022-08-05] MEDS: Aspirin Chewable 81 MG TAB PO SCH (10:01)
[2022-08-05] MEDS: Pantoprazole 40 MG VIAL IVP SCH (10:02)
[2022-08-05] MEDS: Timolol 0.5% Ophth Soln 5 ml Bottle L EYE SCH (10:36)
[2022-08-05] MEDS: Brimonidine Tartrate 0.2% Ophth Soln 5 ml Bottle L EYE SCH (10:37)
[2022-08-05] MEDS: cefTRIAXone\\ROCEPHIN 1 GM in Sodium Chloride 0.9% 100 ML IVPB SCH (10:47)
[2022-08-05 17:37] VITALS: BP 145/65; TEMP 98
== END 2022-08-05 17:10 | DRG 177 ==
LOC: CSHERS 21:12 → CSHERHOLD 22:37 → UNDOADMOB 08-02 00:06 → INTOOBSV 08-02 00:06 → CSHERHOLD 08-02 00:06 → CSHTELE 08-02 14:36 → OBSVTOIN 08-02 20:28
PROVIDERS: ADMIT Emergency Medicine; ATTEND Internal Medicine
PROC: 8E0ZXY6 Isolation (ICD-10-PCS; 2022-08-02)
PROC: XW033E5 Introduction of Remdesivir Anti-infective into Peripheral Vein, Percutaneous Approach, New Technology Group 5 (ICD-10-PCS; principal; 2022-08-03)
DX: U07.1 COVID-19 (principal); G93.41 Metabolic encephalopathy; J96.01 Acute respiratory failure with hypoxia; J12.82 Pneumonia due to coronavirus disease 2019; I13.0 Hypertensive heart and chronic kidney disease with heart failure and stage 1 through stage 4 chronic kidney disease, or unspecified chronic kidney disease; E87.1 Hypo-osmolality and hyponatremia; I50.32 Chronic diastolic (congestive) heart failure; I48.0 Paroxysmal atrial fibrillation; E78.5 Hyperlipidemia, unspecified; R53.1 Weakness; K21.9 Gastro-esophageal reflux disease without esophagitis; N18.30 Chronic kidney disease, stage 3 unspecified; Z88.8 Allergy status to other drugs, medicaments and biological substances; Z91.041 Radiographic dye allergy status; Z91.048 Other nonmedicinal substance allergy status; Z85.46 Personal history of malignant neoplasm of prostate; Z95.0 Presence of cardiac pacemaker; Z88.2 Allergy status to sulfonamides; Z79.899 Other long term (current) drug therapy; Z98.890 Other specified postprocedural states; Z90.79 Acquired absence of other genital organ(s)
CPT/HCPCS: 36415; 70551; 71045; 74230; 80053; 81001; 82533; 82550; 83605; 83735; 83880; 83930; 84100; 84145; 84443; 84484; 85025; 85379; 85610; 85730; 86140; 86850; 86900; 86901; 87077; 87086; 87186; 93005; 93010; 94760; 96361; 96374; C9113; J0248; J0696; J2060; J2405; J3490; J7050; U0002

== ENCOUNTER 2022-08-27 12:58 | Emergency (ER) | payer MEDICARE, BC ==
[2022-08-27] MEDS ORDERED: Ketorolac Tromethamine 30 MG/ML VIAL ONE (14:03)
== END 2022-08-27 17:30 | disposition home or self-care (01) ==
LOC: CSHERS 12:58
DX: S70.01XA Contusion of right hip, initial encounter (principal); M54.50 Low back pain, unspecified; I10 Essential (primary) hypertension; E78.5 Hyperlipidemia, unspecified; W19.XXXA Unspecified fall, initial encounter
CPT/HCPCS: 72100; 72192; 96372; J1885

== ENCOUNTER 2022-08-30 05:01 | Emergency (ER) | payer MEDICARE, BC ==
[2022-08-30] MEDS ORDERED: Ondansetron ODT 4 MG TAB ONE (06:08)
[2022-08-30] MEDS ORDERED: HYDROcodone/Acetaminophen 5/325 mg Tablet ONE (06:08)
[2022-08-30] MEDS ORDERED: Methocarbamol 500 MG TAB PO SCH (06:15)
[2022-08-30 09:50] LABS: #Eosinphils 0.1 10x3/uL (0.0-0.5); #Monocytes 0.2 10x3/uL (0.0-1.1); #Neutrophils 4.9 10x3/uL (1.5-8.4); %Basophils 0.5 % (0.0-2.0); %Eosinophils 2.2 % (0.0-6.0); %Lymphocytes 11.8 % (18.0-47.0); %Monocytes 2.7 % (0.0-10.0); %Neutrophils 81.8 % (40.0-75.0); Hemoglobin 10.4 g/dL (13.5-17.5); Mean Corpuscular HGB CONC 33.4 g/dL (32.0-36.0); Mean Corpuscular Hemoglobin 31.7 pg (27.0-33.0); Mean Corpuscular Volume 94.8 fl (81.2-95.1); Mean Platelet Volume 9.2 fl (7.4-10.4); Platelet Count 230 10x3/uL (150-450); RBC Distribution Width 14.6 % (11.5-14.5); Red Blood Cell (RBC) Count 3.28 10x6/uL (4.32-5.72)
[2022-08-30 10:06] LABS: ALT (SGPT) 11 U/L (8-55); AST (SGOT) 17 U/L (5-34); Albumin 2.8 g/dL (3.4-4.8); Alkaline Phosphatase 174 U/L (40-110); Anion Gap 10 mmol/L (10-20); BUN (Urea Nitrogen) 32 mg/dL (8.4-25.7); Bilirubin, Total 0.4 mg/dL (0.2-1.2); Calc. Creatinine Clearance 0 mL/min (70-130); Calcium 8.8 mg/dL (7.8-10.44); Carbon Dioxide 26 mmol/L (23-31); Chloride 101 mmol/L (98-107); Estimated GFR 43; Glucose 141 mg/dL (83-110); Potassium 4.6 mmol/L (3.5-5.1); Protein, Total 5.8 g/dL (5.8-8.1); Sodium 132 mmol/L (136-145)
[2022-08-30 10:23] LABS: Bilirubin Neg (Negative); Blood, Urine 150 (Negative); Glucose, Urine (Dipstick) Normal (Negative); Ketone, Urine Negative (Negative); Leukocyte 100 (Negative); Nitrite Negative (Negative); Protein, Urine (Dipstick) 30 mg/dl (Neg-Trace); Urobilinogen Normal mg/dL (Less than 2)
[2022-08-30 10:35] LABS: Clarity Hazy (Clear)
[2022-08-30 10:37] LABS: Bacteria/HPF Rare-Few HPF (None Seen); Squamous Epithelial 0-3 HPF (0-3)
== END 2022-08-30 15:21 ==
LOC: CSHERS 05:01
DX: M54.50 Low back pain, unspecified (principal); I10 Essential (primary) hypertension; E78.5 Hyperlipidemia, unspecified
CPT/HCPCS: 36415; 72128; 72131; 80053; 81003; 81015; 85025; Q0162